=== PATIENT | male | born 1950 | race Caucasian/White ===

== ENCOUNTER → 2017-01-28 | Outpatient (CLI) | payer MEDICARE, OTHER, MEDICAID ==
[~2017-01-28] MED LIST: ADV500INH INH; ALBU83IN INH; ASPI1TAB PO; ATOR1TAB19 PO; COUM2.5T11 PO; METO-346 PO; PERC5TAB6 PO; PLAV75TA38 PO; TOPR50TA PO; TYLE325T5 PO; VITA10002 PO; VITA100066 PO
--- NOTE | 2017-02-01 23:47 | ECWPNPC ---
PATIENT NAME: ASHLEY TINOCO : 1950 GENDER: MALE VISIT DATE: 01/28/2017 DISCHARGE DATE: 01/28/17 1501 VISIT LOCKED DATE TIME: PHYSICIAN: KYLEE ANGELES RESOURCE: KYLEE ANGELES REASON FOR APPOINTMENT 1. LUMBAR SPINE HISTORY OF PRESENT ILLNESS NEW PATIENT CONSULT: WHEN DID YOUR PAIN FIRST START? . BRIEFLY DESCRIBE HOW YOUR PAIN STARTED? . HOW DOES YOUR PAIN CHANGE WITH TIME? . DOES YOUR PAIN AWAKEN YOU FROM SLEEP? . HOW MANY HOURS OF SLEEP DO YOU NORMALLY GET? . ANY DIAGNOSTIC TESTING? . FACILITY WHERE TESTS WERE DONE? ____. PAIN TREATMENT TREATMENT YES CANCER HAVE YOU EVER HAD ANY TYPE OF CANCER?NO NO. PAIN SCREENING: PATIENT HAS A COMPLAINT OF ACUTE OR CHRONIC PAIN YES FALL RISK SCREENING: SCREENING :NO FALLS IN THE PAST YEAR LOVE INVENTORY: QUESTIONNAIRE ASSESSEDYES SCORE VALUE CALCULATED YES SCORE: DENIES SUICIDAL OR HOMICIDAL IDEATION TODAY'S VISIT: NOTES: PT REFERRED BY ASTRID SMITH PA-C ((FOR DR BAUTISTA - [facility]) FOR LOW BACK AND LEFT HIP PAIN. REPORTS HE FELL AND FRACTURED LEFT HIP IN 2014 AND HAD SURGICAL INTERVENTION AT [facility] - HAD TERRIBLE PAIN X 7 MONTHS - WAS SEEN AT [facility] AND HAD REVISON/REPLACEMNT SUGERY OF LEFT HIP. HIPS HAS IMPROVED BUT STILL HAS SIG BACK PAIN. MRI WAS DONE RECENTLY OF LS SPINE. LEFT HIP PAIN IS CONSTANT. WORST PAIN IS LEFT LOW BACK. PAIN SHOOTS 1/2 WAY DOWN LEG AND FEELS LIKE A HOT POKER OVER LEFT THIGH. NO POSITION CHANGE HELPS. WALKING IS VERY PAINFUL IN THE HIP AREA. PAIN CAN PRODUCE NAUSEA. NO PAIN ON RIGHT SIDE. PT WAS FOR BOTH BACK AND HIP. X 13 WEEKS. CURRENTLY DOES NOT HAVE A PCP.HAS BEEN SEEING DELGADO MORROW PA-C AT URGENT CARE. HAD BEEN ON OXYCODONE 10/325 X 3 MONTHS POSTOPERATIVELY AND THEN IT WAS DECREASED .HE WOULD LIKE TO BE BACK ON PAIN MEDS. STATES HE DOES NOT WANT TO HAVE ANY INJECTIONS. RATES HIS PAIN LEVEL TODAY 6.5/10. DESCRIBES THE PAIN BURNING, SHARP AND STABBING AND NOTES PAIN IS CENTERED OVER LEFT LOW BACK, HIP AND GROIN.. CURRENT MEDICATIONS TAKING TIZANIDINE HCL 4 MG TABLET 1 TABLET NEEDED ORALLY EVERY 8 HRS, NOTES: ORTHO TAKING VITAMIN D 2000 UNIT TABLET 1 TABLET ORALLY ONCE A DAY TAKING VITAMIN B 12 1000 MCG CAPSULE 1 CAP(S) ORALLY DAILY TAKING ASPIRIN 81 MG TABLET 1 TABLET ORALLY ONCE A DAY TAKING ADVAIR DISKUS 500-50 MCG/DOSE AEROSOL POWDER BREATH ACTIVATED 2 PUFF INHALATION TWICE A DAY TAKING ALBUTEROL SULFATE (2.5 MG/3ML) 0.083% NEBULIZATION SOLUTION 3 ML INHALATION THREE TIMES A DAY NEEDED FOR SOB TAKING VENTOLIN HFA 108 (90 BASE) MCG/ACT AEROSOL SOLUTION 2 PUFFS NEEDED INHALATION FOUR TIMES DAILY NEEDED TAKING ATORVASTATIN CALCIUM 10 MG TABLET 1 TABLET ORALLY ONCE A DAY TAKING METOPROLOL TARTRATE 50 MG TABLET 1 TABLET WITH FOOD ORALLY TWICE A DAY NOT-TAKING OXYCODONE-ACETAMINOPHEN 5-325 MG TABLET 1 TO 2 TABLET NEEDED ORALLY EVERY 6 HRS PRN== MDD=8, NOTES: ORHTO NOT-TAKING CLOPIDOGREL BISULFATE 75 MG TABLET 1 TABLET ORALLY ONCE A DAY DISCONTINUED REMERON 30 MG TABLET 1 TABLET BEFORE BEDTIME IN THE EVENING ORALLY ONCE A DAY DISCONTINUED COLACE 100 MG CAPSULE 1 CAPSULE NEEDED ORALLY ONCE A DAY DISCONTINUED METOPROLOL SUCCINATE ER 50MG TABLET EXTENDED RELEASE 24 HOUR TAKE ONE TABLET BY MOUTH ONCE DAILY MEDICATION LIST REVIEWED AND RECONCILED WITH THE PATIENT PAST MEDICAL HISTORY CAD S/P [place] 08/2014 S/P STENT X2 AND [place]ALL[place] ANGIOPLASTY AT 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 MALONE GASTRITIS PER EGD 11/2015 ALLERGIES IBUPROFEN: HEMATURIA: ALLERGY LYRICA: HIVES: ALLERGY GABAPENTIN: HIVES: ALLERGY CODEINE PHOSPHATE: NAUSEA/VOMITING: ALLERGY SURGICAL HISTORY LAMINECTOMY/LUMBAR FUSION 2013 CERVICAL DISCECTOMY WITH FUSION 2009 APPENDECTOMY ORIF LEFT HIP 2014 LEFT TOTAL HIP REPLACEMENT 2015 RIGHT WRIST ORIF ANGIOPLASTY/2 STENTS 2013 RIGHT THUMB RECONSTRUCTION LEFT INDEX AND MIDDLE FINGER RECONSTRUCTION FAMILY HISTORY FATHER: MOTHER: 8 SON(S) , 2 DAUGHTER(S) - HEALTHY. SOCIAL HISTORY GENERAL: TOBACCO USE ARE YOU A:CURRENT SMOKER HOW MANY CIGARETTES A DAY DO YOU SMOKE?5 OR LESS PATIENT COUNSELED ON THE DANGERS OF TOBACCO USE AND URGED TO QUIT:01/28/2017 ARE YOU INTERESTED IN QUITTING?NOT READY TO QUIT COUNSELED THE PATIENT ON SMOKING EFFECTS, EDUCATION [id number]/20/2017 ALCOHOL SCREENING POINTS1 INTERPRETATIONNEGATIVE RECREATIONAL DRUG USE DRUG USE?NO CAFFEINE CAFFEINE USE?YES HOW OFTEN AND HOW MUCH? 3 CUPS/DAY OCCUPATION: RETIRED. DIET: REGULAR. EXERCISE: PUSHUPS DAILY. MARITAL STATUS: . OTHERS AT HOME: SPOUSE. RESTORATIONIST: NO SCIENTOLOGIST BELIEFS THAT WOULD IMPACT HEALTH CARE. LEARNING BARRIERS / SPECIAL NEEDS VISION IMPAIRED?YES :CORRECTIVE LENSES LEARNING PREFERENCES?YES :HANDOUTS, DEMONSTRATION/VERBAL INSTRUCTION MEDICATION ABUSE NO PSYCHOLOGICAL HX TREATMENTNO PAIN CLINIC PFS, CLERGY, PUBLIC HEALTH REFERRALS PFS REFERRAL NEEDED?NO CLERGY REFERRAL NEEDED?NO PUBLIC HEALTH REFERRAL NEEDED?NO WAS THE PROVIDER NOTIFIED OF ANY PERTINENT INFO?NO PATIENT: ____. ADVANCED DIRECTIVES HEALTH CARE PROXY?YES NAME OF HCP VEENA TINOCO CONTACT # FOR HCP [phone] IF YES, DO YOU HAVE A COPY WITH YOU? NO POWER OF INTERIOR DESIGN PROFESSIONAL?NO HOSPITALIZATION/MAJOR DIAGNOSTIC PROCEDURE SEE ABOVE SURGERIES PNEUMONIA A CHILD REVIEW OF SYSTEMS CONSTITUTIONAL: ANY CHANGE IN YOUR MEDICAL CONDITION? NO . CHILLS NO . FEVER NO . INFECTION: DO YOU HAVE NEW INFECTIONS? NO . DO YOU HAVE HISTORY OF MRSA? NO . MUSCULOSKELETAL: ANY NEW PATTERNS OF PAIN OR NUMBNESS? YES PT NOTES LEFT HIP/LEFT LOWER BACK DISCOMFORT SINCE FRACTURING LEFT HIP IN 2014. . SYTEMIC LUPUS NO . GASTROENTEROLOGY: GENERAL HAD GI ULCER WHEN 15 YEARS OLD. HAS GI BLEED WITH IBU . ANY NEW CHANGE IN BOWEL CONTROL? NO . BARRETTS ESOPHAGUS NO . CIRRHOSIS NO . HEPATITIS NO . LIVER FAILURE NO . ACID REFLUX NO . UNEXPLAINED WEIGHT LOSS YES, UNINTENTIONALLY LOST 37 LBS THIS YEAR. WORK UP NEGATIVE, HAS RECENTLY PUT 8LBS BACK ON. . GENITOURINARY: ANY NEW CHANGE IN BLADDER CONTROL? NO . IS THERE A CHANCE YOU COULD BE ? NO . HEMATOLOGY/LYMPH: DO YOU TAKE ANY BLOOD THINNERS? (FOR EXAMPLE- COUMADIN, PLAVIX, AGGRENOX, PLATEL, PRADAXA, OR XARELTO) NO . WHEN WAS YOUR LAST DOSE? DATE: TIME: . LOW PLATELET COUNT NO . SICKLE CELL DISEASE NO . VON WILLIEBRANDS NO . FACTOR V LEIDEN NO . THALLASEMIA NO . ANEMIA NO . EASY BRUISING NO . NEUROLOGY: HAVE YOU FALLEN IN THE PAST 6 MONTHS? YES &QUOT;WHEN MY LEG GIVES OUT, PROBABLY 4-5 TIMES IN THE PAST YEAR&QUOT;. . ANY NEW EXTREMITY NUMBNESS OR WEAKNESS? NO . HEAD INJURY NO . DEMENTIA NO . CEREBRAL PALSY NO . MULTIPLE SCLEROSIS NO . DIZZINESS NO . HEADACHE NO . STROKES NO . VERTIGO NO . CARDIOLOGY: DO YOU HAVE A PACEMAKER OR DEFIBRILLATOR? NO . ANGINA NO . HEART ATTACK YES WITH ANGIOPLASTY/2 STENTS. . HEART SURGERY NO . CONGESTIVE HEART FAILURE/FLUID OVERLOAD NO . CHEST PAIN NO . HIGH BLOOD PRESSURE NO . IRREGULAR HEART BEAT YES. PT STATES HX OF A FIB. . RESPIRATORY: HAVE YOU BEEN SICK IN THE PAST WEEK? NO . FEVER NO . FLU LIKE SYMPTOMS? NO . CPAP NO . BYPAP NO . ASTHMA NO . EMPHYSEMA YES . CHRONIC LUNG DISEASES YES - BLACK MOLD . SHORTNESS OF BREATH ON EXERTION YES . DO YOU USE ANY TYPE OF TOBACCO (SMOKE, SMOKELESS, CHEW)? YES 4-5 CIGARETTES/DAY . COUGH YES, NON-PRODUCTIVE . SNORING NO . INTEGUMENTARY: DO YOU HAVE ANY RASHES OR OPEN SORES? NO . ALLERGIC/IMMUNO: ARE YOU ALLERGIC TO SHELLFISH OR IV DYE? NO . ANY NEW ALLERGIES? NO . PSYCHIATRIC: DO YOU HAVE THOUGHTS OF HURTING YOURSELF OR SOMEONE ELSE? NO . ARE YOU ABUSED, NEGLECTED, OR IN AN UNSAFE ENVIRONMENT? NO . ENDOCRINOLOGY: ARE YOU DIABETIC? NO . THYROID DISORDER NO . OTHER: DO YOU NEED ANY PRESCRIPTIONS? NO . IF YES, PLEASE LIST: ____ . ANY NEW PROBLEMS WITH YOUR MEDICATIONS? NO . WHEN DID YOU LAST EAT? ____ . WHEN DID YOU LAST DRINK? ____ . WHAT DID YOU LAST DRINK? ____ . NAME OF PERSON DRIVING YOU HOME? ____ . DO YOU HAVE ANY OTHER QUESTIONS OR CONCERNS NO . REVIEWED BY: PROVIDER: KYLEE HUA . VITAL SIGNS WT 143 LBS, HT 6', BMI 19.39 INDEX, BP 131/80 MM HG, HR 92 /MIN, RR 18 /MIN, TEMP 98.6 F, OXYGEN SAT % 97%, REVIEWED BY: MLF. EXAMINATION GENERAL EXAMINATION: PSYCHTHIN, PALE, ALERT , ORIENTED X 3 , ANXIOUS. HEENT:NORMOCEPHALIC, NO LYMPHDENOPATHY, NO THYROMEGLY. LUNGS:CLEAR TO AUSCULTATION BILATERALLY, NO WHEEZES, RALES OR RHONCHI. HEART:NO CAROTID BRUITS. , HEART RATE IRREGULAR, , 1/6 SYSTOLOC MURMUR LEFT OF STERAL BORDER. . MUSCULOSKELETAL:MUSCLE STRENGTH TESTING 5/5 BILATERAL UPPER AND LOWER EXTREMITIES. HEAD IN HEAD FORWARD POSITION NEG SLR BILAT. POS PATRICKS WITH PAIN IN LEFT HIP. SL DISCOMFORT WITH LEFT HIP COMPRESSTION. POINT TENDERNESS OVER LEFT FACETS AND SIJ, EXQ TENDER OVER LEFT TROCANTER. SLOW TO RISE TO STANDING POSITION. POOR BALANCE. GAIT WIDE BASED, ROCKING.. NEUROLOGIC EXAM:DECREASED SENSATION OVEER MEDIAL/LAT LEFT HIP AND LATER LEFT LOWER EXTREMITY. DTR'S 2+ UPPER AND LOWER EXTREMITIES. . DIAGNOSTIC TESTS REVIEWEDMRI OF LUMBAR SPINE WITH CONTRAST COMPLETED 01/04/17 REVIEWED. ASSESSMENTS POST LAMINECTOMY SYNDROME - M96.1 (PRIMARY) LUMBAR RADICULAR PAIN - M54.16 PAIN OF LEFT HIP JOINT - M25.552 TREATMENT POST LAMINECTOMY SYNDROME START DULOXETINE HCL CAPSULE DELAYED RELEASE PARTICLES, 30 MG, 1 CAPSULE, ORALLY, DAILY, 30 DAY(S), 30 CAPSULE, REFILLS 1 START TRAMADOL HCL TABLET, 50 MG, 2 TABLET, ORALLY, BEFORE BEDTIME, 30 DAY(S), 60, REFILLS 1 NOTES: CONSIDER INJECTION TREATMENT. SEE SURGEON FOR RE-EVAL , # 226 TOBACCO USE SCREENING/INTERVENTION: PATIENT CURRENTLY USED TOBACCO. WAS OFFERED SMOKING CESSATION FOR GUIDANCE IN QUITTING THROUGH THE [facility] QUITS PROGRAM AND [facility]. DISCUSSED WEIGHT LOSS - PT WILL BE CONTINUING TO FOLLOW UP WITH HIS PRIMARY PROVIDER. PREVENTIVE MEDICINE PAIN CLINIC TEACHING: MEDICATIONS PRINTED HANDOUTS FOR TRAMADOL AND DULOXETINE GIVEN/REVIEWED WITH PT.. PROCEDURE CODES FA211 ESTABILISHED PATIENT [facility] FACILITY CHARGE G7653 BP SCR PRFRM RCMDD DEFIND SCR INTVL G8418 BMI < 22 CALCUATE W/FOLLOWUP G8730 PAIN ASSESS POS TOOL F/U PLAN DOC 3016F PT SCRND UNHLTHY OH USE 1124F ACP DISCUSS-NO DSCNMKR DOCD J6427 DOC MEDS VERIFIED W/PT [place] RE 3288F FALL RISK ASSESSMENT DOCD 4004F PT TOBACCO SCREEN RCVD TLK DISPOSITION & COMMUNICATION FOLLOW UP 1 MONTH ELECTRONICALLY SIGNED BY JAVIER SOTO ON 02/01/2017 AT 06:12 PM EDT DISCLAIMER : THIS IS A VISIT SUMMARY EXTRACTED FROM THE [employer] CHART. IT IS NOT A COPY OF THE [employer] PROGRESS NOTE. SUNIL
== END ==
LOC: M PAIN 13:20
PROVIDERS: ATTEND Nurse Practitioner Family
DX: M96.1 Postlaminectomy syndrome, not elsewhere classified (principal); M54.16 Radiculopathy, lumbar region; M25.552 Pain in left hip; G89.29 Other chronic pain; Z79.82 Long term (current) use of aspirin; Z79.899 Other long term (current) drug therapy; J44.9 Chronic obstructive pulmonary disease, unspecified; I25.10 Atherosclerotic heart disease of native coronary artery without angina pectoris; Z72.0 Tobacco use; E53.8 Deficiency of other specified B group vitamins; E55.9 Vitamin D deficiency, unspecified

== ENCOUNTER → 2017-03-29 | Outpatient (CLI) | payer MEDICARE, OTHER, MEDICAID ==
--- NOTE | 2017-04-16 00:33 | ECWPNPC ---
PATIENT NAME: ASHLEY TINOCO : 1950 GENDER: MALE VISIT DATE: 03/29/2017 DISCHARGE DATE: 03/29/17 1235 VISIT LOCKED DATE TIME: PHYSICIAN: KYLEE ANGELES RESOURCE: KYLEE ANGELES REASON FOR APPOINTMENT 1. BACK HISTORY OF PRESENT ILLNESS HISTORY OF PRESENT ILLNESS: PAIN THE PATIENT DESCRIBES THE PAIN... FALL RISK SCREENING: SCREENING :NO FALLS IN THE PAST YEAR TODAY'S VISIT: NOTES: RATES PAIN LEVEL TODAY 04/20.NOTES PAIN IS CENTERED IN LOW BACK AND LEFT BUTTUCK.HAS BEEN CLIMBING LADDERS AND WORKING UNDER TRUCK. HAS SURGERY SCHEDULED FOR 04/18/[address] BAUTISTA. STATES PAIN MEDS OF TRAMADOL WERE NOT VERY EFFECTIVE. . CURRENT MEDICATIONS TAKING DULOXETINE HCL 30 MG CAPSULE DELAYED RELEASE PARTICLES 1 CAPSULE ORALLY DAILY TAKING TIZANIDINE HCL 4 MG TABLET 1 TABLET NEEDED ORALLY EVERY 8 HRS, NOTES: ORTHO TAKING VITAMIN D 2000 UNIT TABLET 1 TABLET ORALLY ONCE A DAY TAKING VITAMIN B 12 1000 MCG CAPSULE 1 CAP(S) ORALLY DAILY TAKING ADVAIR DISKUS 500-50 MCG/DOSE AEROSOL POWDER BREATH ACTIVATED 2 PUFF INHALATION TWICE A DAY TAKING ALBUTEROL SULFATE (2.5 MG/3ML) 0.083% NEBULIZATION SOLUTION 3 ML INHALATION THREE TIMES A DAY NEEDED FOR SOB TAKING VENTOLIN HFA 108 (90 BASE) MCG/ACT AEROSOL SOLUTION 2 PUFFS NEEDED INHALATION FOUR TIMES DAILY NEEDED TAKING ATORVASTATIN CALCIUM 10 MG TABLET 1 TABLET ORALLY ONCE A DAY TAKING METOPROLOL TARTRATE 50 MG TABLET 1 TABLET WITH FOOD ORALLY TWICE A DAY TAKING XARELTO 10 MG TABLET 1 TABLET ORALLY ONCE A DAY NOT-TAKING TRAMADOL HCL 50 MG TABLET 2 TABLET ORALLY BEFORE BEDTIME NOT-TAKING ASPIRIN 81 MG TABLET 1 TABLET ORALLY ONCE A DAY NOT-TAKING OXYCODONE-ACETAMINOPHEN 5-325 MG TABLET 1 TO 2 TABLET NEEDED ORALLY EVERY 6 HRS PRN== MDD=8, NOTES: ORHTO NOT-TAKING CLOPIDOGREL BISULFATE 75 MG TABLET 1 TABLET ORALLY ONCE A DAY MEDICATION LIST REVIEWED AND RECONCILED WITH THE PATIENT PAST MEDICAL HISTORY CAD S/P [place] 08/2014 S/P STENT X2 AND [facility]ALL[place] ANGIOPLASTY AT [facility] - NOT FOLLOWED BY CUT ROLL MACHINE OFFBEARER CURRENTLY, SAW ESTEPHANIE/DIANA 09/25 PREOP HIP FX DDD C-SPINE AND LUMBAR SPINE - CHRONIC PAIN COPD 08/13/15 SPIROMETRY - FEV1 = 2.22 60%, FEV1/FVC = 75% PREDICTED - MODERATE OBSTRUCTION; CT CHEST 08/25 TOBACCO ABUSE 08/2015 CT ABD/PELVIS - ALINA HEPATIS AND RETROPERITONEAL ADENOPATHY - PET SCAN NEGATIVE 12/2015 - FOLLOWED BY DR. MALONE GASTRITIS PER EGD 11/2015 ALLERGIES IBUPROFEN: HEMATURIA: ALLERGY LYRICA: HIVES: ALLERGY GABAPENTIN: HIVES: ALLERGY CODEINE PHOSPHATE: NAUSEA/VOMITING: ALLERGY REVIEW OF SYSTEMS CONSTITUTIONAL: ANY CHANGE IN YOUR MEDICAL CONDITION? YES PT REPORTS HE IS SCHEDULED TO HAVE BACK SURGERY AT [facility] 04/18/17&NBSP;. CHILLS &NBSP;&NBSP; NO&NBSP;. FEVER &NBSP;&NBSP; NO&NBSP;. INFECTION: DO YOU HAVE NEW INFECTIONS? NO . DO YOU HAVE HISTORY OF MRSA? NO . MUSCULOSKELETAL: ANY NEW PATTERNS OF PAIN OR NUMBNESS? YES PT REPORTS INCREASED PAIN IN BACK/HIP, NOW STATES IT IS GETTING HARD TO WALK . GASTROENTEROLOGY: ANY NEW CHANGE IN BOWEL CONTROL? NO . GENITOURINARY: ANY NEW CHANGE IN BLADDER CONTROL? NO . IS THERE A CHANCE YOU COULD BE ? NO . HEMATOLOGY/LYMPH: DO YOU TAKE ANY BLOOD THINNERS? (FOR EXAMPLE- COUMADIN, PLAVIX, AGGRENOX, PLATEL, PRADAXA, OR XARELTO) YES THINKS IT IS XARELTO, WILL BRING A LIST TO NEXT APPOINTMENT . WHEN WAS YOUR LAST DOSE? DATE: TIME: . NEUROLOGY: HAVE YOU FALLEN IN THE PAST 6 MONTHS? NO . ANY NEW EXTREMITY NUMBNESS OR WEAKNESS? NO . CARDIOLOGY: DO YOU HAVE A PACEMAKER OR DEFIBRILLATOR? NO . RESPIRATORY: HAVE YOU BEEN SICK IN THE PAST WEEK? NO . FEVER NO . FLU LIKE SYMPTOMS? NO . COUGH NO . INTEGUMENTARY: DO YOU HAVE ANY RASHES OR OPEN SORES? NO . ALLERGIC/IMMUNO: ARE YOU ALLERGIC TO SHELLFISH OR IV DYE? NO . ANY NEW ALLERGIES? NO . PSYCHIATRIC: DO YOU HAVE THOUGHTS OF HURTING YOURSELF OR SOMEONE ELSE? NO . ARE YOU ABUSED, NEGLECTED, OR IN AN UNSAFE ENVIRONMENT? NO . ENDOCRINOLOGY: ARE YOU DIABETIC? NO . OTHER: DO YOU NEED ANY PRESCRIPTIONS? YES DULOXETINE . IF YES, PLEASE LIST: ____ . ANY NEW PROBLEMS WITH YOUR MEDICATIONS? NO . WHEN DID YOU LAST EAT? ____ . WHEN DID YOU LAST DRINK? ____ . WHAT DID YOU LAST DRINK? ____ . NAME OF PERSON DRIVING YOU HOME? ____ . DO YOU HAVE ANY OTHER QUESTIONS OR CONCERNS YES PT REPORTS THAT TRAMADOL IS INEFFECTIVE, WOULD LIKE TO TRY SOMETHING ELSE . REVIEWED BY: PROVIDER: KYLEE HUA . VITAL SIGNS WT 147.4 LBS, HT 6', BMI 19.99 INDEX, BP 151/81 MM HG, HR 88 /MIN, RR 18 /MIN, TEMP 98.4 F, OXYGEN SAT % 98%, SAFE IN ENV? (Y/N) YES, NA INITIALS TL 1140, REVIEWED BY: JAVED. EXAMINATION GENERAL EXAMINATION: PSYCHTHIN, PALE, ALERT , ORIENTED X 3 , ANXIOUS. LUNGS:CLEAR TO AUSCULTATION BILATERALLY, NO WHEEZES, RALES OR RHONCHI. HEART:NO CAROTID BRUITS. , HEART RATE IRREGULAR, , 1/6 SYSTOLOC MURMUR LEFT OF STERAL BORDER. . MUSCULOSKELETAL:MUSCLE STRENGTH TESTING 5/5 BILATERAL UPPER AND LOWER EXTREMITIES. HEAD IN HEAD FORWARD POSITION . SL DISCOMFORT WITH LEFT HIP COMPRESSTION. POINT TENDERNESS OVER LEFT FACETS AND SIJ, EXQ TENDER OVER LEFT TROCANTER. SLOW TO RISE TO STANDING POSITION. POOR BALANCE. GAIT WIDE BASED, ROCKING.. NEUROLOGIC EXAM:DECREASED SENSATION OVEER MEDIAL/LAT LEFT HIP AND LATER LEFT LOWER EXTREMITY. DTR'S 2+ UPPER AND LOWER EXTREMITIES. . ASSESSMENTS POST LAMINECTOMY SYNDROME - M96.1 (PRIMARY) LUMBAR RADICULAR PAIN - M54.16 PAIN OF LEFT HIP JOINT - M25.552 TREATMENT POST LAMINECTOMY SYNDROME START PERCOCET TABLET, 5-325 MG, 1 TABLET NEEDED, ORALLY, EVERY 8-12 HRS MDD=2, 18 DAYS, 34, REFILLS 0 START BACLOFEN TABLET, 10 MG, 1 TABLET WITH FOOD OR MILK, ORALLY, BEFORE BEDTIME, 30 DAY(S), 30, REFILLS 0 NOTES: DO NOT TAKE MEDICATION AND DRIVE. KEEP MEDICATION SECURE. PROCEDURE CODES FA211 ESTABILISHED PATIENT [facility] CHARGE DISPOSITION & COMMUNICATION FOLLOW UP CALL IF APPOINTMENT NEEDED ELECTRONICALLY SIGNED BY JAVIER SOTO ON 04/15/2017 AT 10:55 AM EDT DISCLAIMER : THIS IS A VISIT SUMMARY EXTRACTED FROM THE [facility] CH[facility]. IT IS NOT A COPY OF THE [facility] PROGRESS NOTE. MTDD
== END ==
LOC: M PAIN 11:00
PROVIDERS: ATTEND Nurse Practitioner Family
DX: M96.1 Postlaminectomy syndrome, not elsewhere classified (principal); M54.16 Radiculopathy, lumbar region; M25.552 Pain in left hip; Z79.899 Other long term (current) drug therapy; Z88.6 Allergy status to analgesic agent; Z88.5 Allergy status to narcotic agent; Z88.8 Allergy status to other drugs, medicaments and biological substances

== ENCOUNTER → 2017-05-16 | Outpatient (CLI) | payer MEDICARE, MEDICAID ==
[~2017-05-16] MED LIST changes: -COUM2.5T11 PO; +COUM2.5T17 PO; +PERC5TAB12 PO; -PERC5TAB6 PO; +PLAV1TAB2 PO; -PLAV75TA38 PO
--- NOTE | 2017-05-16 13:45 | REP ---
Clinical: Lung screening. History smoking. Comparison: 10/03/2016 Technique: Axial low-dose noncontrast images from the thoracic inlet to the upper abdomen using lung screening technique. Findings: The lung schneider are well-aerated. Mild chronic emphysematous changes suggested. No consolidation, significant nodule or mass lesion is appreciated. No pleural effusion/reaction or pneumothorax. Tracheobronchial tree is patent. Mediastinum demonstrates mild atherosclerotic changes of the coronary arteries without cardiomegaly. Impression: Lung-RADS category I. No nodule or suspicious abnormality. Signed by Kerwin Barrios MD 05/16/2017 01:36 P
== END ==
LOC: M RAD 13:07
PROVIDERS: ATTEND Physician Assistant
DX: Z12.2 Encounter for screening for malignant neoplasm of respiratory organs (principal); J44.9 Chronic obstructive pulmonary disease, unspecified; F17.210 Nicotine dependence, cigarettes, uncomplicated

== ENCOUNTER → 2017-07-23 | Outpatient (REF) | payer MEDICARE, MEDICAID ==
[2017-07-23 20:17] LABS: FOLATE 11.3 NG/ML; MEAN CORPUSCULAR HEMOGLOBIN 32.4 pg (27.0-33.0); MEAN CORPUSCULAR HGB CONC 32.1 g/dl (32.0-36.5); RED CELL DISTRIBUTION WIDTH 14.3 % (11.5-14.5); WHITE BLOOD COUNT 5.9 K/mm3 (4.0-10.0)
[2017-07-23 20:21] LABS: ALBUMIN 3.6 GM/DL (3.2-5.2); ALKALINE PHOSPHATASE 103 U/L (45-117); ALT/SGPT 41 U/L (12-78); ANION GAP 6 MEQ/L (8-16); AST/SGOT 36 U/L (15-37); BILIRUBIN,TOTAL 0.4 MG/DL (0.2-1.0); BLOOD UREA NITROGEN 10 MG/DL (7-18); CALCIUM LEVEL 9.7 MG/DL (8.8-10.2); CARBON DIOXIDE LEVEL 30 MEQ/L (21-32); CHLORIDE LEVEL 106 MEQ/L (98-107); CHOLESTEROL LEVEL 180 MG/DL (<200); CREATININE FOR GFR 0.94 MG/DL (0.70-1.30); FREE T4 1.06 NG/DL (0.76-1.46); GLOMERULAR FILTRATION RATE > 60.0 (>49); GLUCOSE, FASTING 83 MG/DL (80-110); POTASSIUM SERUM 4.8 MEQ/L (3.5-5.1); SODIUM LEVEL 142 MEQ/L (136-145); TOTAL PROTEIN 7.2 GM/DL (6.4-8.2); TRIGLYCERIDES LEVEL 56 MG/DL (<150)
[2017-07-23 20:59] LABS: VITAMIN B12 LEVEL 638 PG/ML
== END ==
LOC: M SFHCADAM 13:35
PROVIDERS: ATTEND Physician Assistant
DX: J44.9 Chronic obstructive pulmonary disease, unspecified (principal); I25.10 Atherosclerotic heart disease of native coronary artery without angina pectoris; Z87.81 Personal history of (healed) traumatic fracture; E55.9 Vitamin D deficiency, unspecified; E53.8 Deficiency of other specified B group vitamins; Z79.899 Other long term (current) drug therapy

== ENCOUNTER → 2017-08-05 | Outpatient (CLI) | payer MEDICARE, MEDICAID ==
--- NOTE | 2017-08-31 00:52 | ECWPNPC ---
PATIENT NAME: ASHLEY TINOCO : 1950 GENDER: MALE VISIT DATE: 08/05/2017 DISCHARGE DATE: 08/05/17 1437 VISIT LOCKED DATE TIME: PHYSICIAN: KYLEE ANGELES RESOURCE: KYLEE ANGELES REASON FOR APPOINTMENT 1. BACK HISTORY OF PRESENT ILLNESS TODAY'S VISIT: NOTES: RATES PAIN 5/10. PAIN IS CONCENTRATED IN LEFT HIP AND LOW BACK AND AT NECK. HAD EXTENSIVE BACK SURGERY WITH DR BAUTISTA IN [place]. HAS NOT HAD ANY PAIN MEDS. HAD 2 GA'S [address] SINCE SURGERY.. CURRENT MEDICATIONS TAKING ADVAIR DISKUS 500-50 MCG/DOSE AEROSOL POWDER BREATH ACTIVATED 1 PUFF INHALATION TWICE A DAY TAKING VENTOLIN HFA 108 (90 BASE) MCG/ACT AEROSOL SOLUTION 2 PUFFS NEEDED INHALATION FOUR TIMES DAILY NEEDED TAKING RANEXA 1000 MG TABLET EXTENDED RELEASE 12 HOUR 1 TABLET ORALLY TWICE A DAY TAKING TIZANIDINE HCL 4 MG TABLET 1 TABLET NEEDED ORALLY EVERY 8 HRS, NOTES: ORTHO TAKING ALBUTEROL SULFATE (2.5 MG/3ML) 0.083% NEBULIZATION SOLUTION 3 ML INHALATION THREE TIMES A DAY NEEDED FOR SOB TAKING ATORVASTATIN CALCIUM 10 MG TABLET 1 TABLET ORALLY ONCE A DAY TAKING METOPROLOL TARTRATE 50 MG TABLET 1 TABLET WITH FOOD ORALLY TWICE A DAY TAKING PLAVIX 75 MG TABLET 1 TABLET ORALLY TWICE DAILY TAKING VITAMIN D 2000 UNIT TABLET 1 TABLET ORALLY ONCE A DAY TAKING VITAMIN B 12 1000 MCG CAPSULE 1 CAP(S) ORALLY DAILY NOT-TAKING RANEXA 1 TAB ORAL NOT-TAKING ASPIRIN 81 MG TABLET 1 TABLET ORALLY ONCE A DAY MEDICATION LIST REVIEWED AND RECONCILED WITH THE PATIENT PAST MEDICAL HISTORY CAD S/P [place] 08/2014 S/P STENT X2 AND [place]ALL[place] ANGIOPLASTY AT [facility] - S/P CATH 06/2017 WITH TIMOTHY X 4 DDD C-SPINE AND LUMBAR SPINE - CHRONIC PAIN COPD 08/13/15 SPIROMETRY - FEV1 = 2.22 60%, FEV1/FVC = 75% PREDICTED - MODERATE OBSTRUCTION; CT CHEST 08/25 TOBACCO ABUSE 08/2015 CT ABD/PELVIS - ALINA HEPATIS AND RETROPERITONEAL ADENOPATHY - PET SCAN NEGATIVE 12/2015 - FOLLOWED BY DR. MALONE GASTRITIS PER EGD 11/2015 ALLERGIES IBUPROFEN: HEMATURIA: ALLERGY LYRICA: HIVES: ALLERGY GABAPENTIN: HIVES: ALLERGY CODEINE PHOSPHATE: NAUSEA/VOMITING: ALLERGY REVIEW OF SYSTEMS FOLLOW-UP ROS: CARDIOLOGY: NEGATIVE FOR, CHEST PAIN, NO LEG SWELLING . GI/ NEGATIVE FOR, ABDOMINAL PAIN, NAUSEA, VOMITING, LOSS OF BOWEL OR BLADDER CONTROL . PULMONOLOGY: NEGATIVE FOR, COUGH, SHORTNESS OF BREATH . VITAL SIGNS WT 142.8 LBS, HT 6', BMI 19.37 INDEX, BP 146/74 MM HG, HR 85 /MIN, RR 18 /MIN, TEMP 98.1 F, OXYGEN SAT % 95%, NA INITIALS SC 13:37. EXAMINATION GENERAL EXAMINATION: PSYCHTHIN, PALE, ALERT , ORIENTED X 3 , ANXIOUS. LUNGS:CLEAR TO AUSCULTATION BILATERALLY, NO WHEEZES, RALES OR RHONCHI. HEART:NO CAROTID BRUITS. , HEART RATE IRREGULAR, , 1/6 SYSTOLOC MURMUR LEFT OF STERNAL BORDER. . MUSCULOSKELETAL:MUSCLE STRENGTH TESTING 5/5 BILATERAL UPPER AND LOWER EXTREMITIES. HEAD IN HEAD FORWARD POSITION . SL DISCOMFORT WITH LEFT HIP COMPRESSTION. POINT TENDERNESS OVER LEFT FACETS AND SIJ, TENDER OVER LEFT TROCANTER. SLOW TO RISE TO STANDING POSITION. POOR BALANCE. GAIT WIDE BASED, ROCKING.. NEUROLOGIC EXAM:DECREASED SENSATION OVEER MEDIAL/LAT LEFT HIP AND LATER LEFT LOWER EXTREMITY. DTR'S 2+ UPPER AND LOWER EXTREMITIES. . ASSESSMENTS POST LAMINECTOMY SYNDROME - M96.1 (PRIMARY) LUMBAR RADICULAR PAIN - M54.16 PAIN OF LEFT HIP JOINT - M25.552 TREATMENT POST LAMINECTOMY SYNDROME START NORCO TABLET, 5-325 MG, 1 TABLET NEEDED, ORALLY, EVERY 6 HRS PRN PAIN MDD=3, 30 DAY(S), 90, REFILLS 0 NOTES: NARCOTIC AGREEMENTTODAY. CLINICAL NOTES: ISTOP REGISTRY REVIEWED AND DEMNOSTRATES COMPLLIANCE. (REF # [id number]). PROCEDURE CODES FA211 ESTABILISHED PATIENT [facility] CHARGE DISPOSITION & COMMUNICATION FOLLOW UP 26-28 DAYS (REASON: BACK PAIN) ELECTRONICALLY SIGNED BY JAVIER SOTO ON 08/30/2017 AT 09:52 AM EDT DISCLAIMER : THIS IS A VISIT SUMMARY EXTRACTED FROM THE [employer] CHART. IT IS NOT A COPY OF THE [employer] PROGRESS NOTE. MTDD
== END | disposition home or self-care (01) ==
LOC: M PAIN 13:30
PROVIDERS: ATTEND Nurse Practitioner Family
DX: G89.29 Other chronic pain (principal); M96.1 Postlaminectomy syndrome, not elsewhere classified; M54.16 Radiculopathy, lumbar region; M25.552 Pain in left hip; I25.10 Atherosclerotic heart disease of native coronary artery without angina pectoris; M19.90 Unspecified osteoarthritis, unspecified site; J44.9 Chronic obstructive pulmonary disease, unspecified; Z79.899 Other long term (current) drug therapy; Z79.02 Long term (current) use of antithrombotics/antiplatelets; Z88.8 Allergy status to other drugs, medicaments and biological substances

== ENCOUNTER → 2017-09-04 | Outpatient (CLI) | payer MEDICARE, MEDICAID ==
--- NOTE | 2017-09-30 00:46 | ECWPNPC ---
PATIENT NAME: ASHLEY TINOCO : 1950 GENDER: MALE VISIT DATE: 09/04/2017 DISCHARGE DATE: 09/04/17 1343 VISIT LOCKED DATE TIME: PHYSICIAN: KYLEE ANGELES RESOURCE: KYLEE ANGELES REASON FOR APPOINTMENT 1. BACK PAIN HISTORY OF PRESENT ILLNESS HISTORY OF PRESENT ILLNESS: PAIN THE PATIENT DESCRIBES THE PAIN... FALL RISK SCREENING: SCREENING :NO FALLS IN THE PAST YEAR TODAY'S VISIT: NOTES: RATES PAIN TODAY 5/10. IS NOTING THAT THE COLD WEATHER IS A PROBLEM FOR HIS PAIN CONTROL. PAIN IS CENTERED OVER LOW BACK AND LEFT HIP. NOTES PAIN MEDS ARE NOT WORKING WELL. NOTED NO IMPROVEMENT ON HIGHER DOSES OF MEDS. STATES SLEEP IS DISRUPTED. HOPES TO BE MOVING TO [place] NEXT MONTH. . CURRENT MEDICATIONS TAKING ADVAIR DISKUS 500-50 MCG/DOSE AEROSOL POWDER BREATH ACTIVATED 1 PUFF INHALATION TWICE A DAY TAKING VENTOLIN HFA 108 (90 BASE) MCG/ACT AEROSOL SOLUTION 2 PUFFS NEEDED INHALATION FOUR TIMES DAILY NEEDED TAKING RANEXA 1000 MG TABLET EXTENDED RELEASE 12 HOUR 1 TABLET ORALLY TWICE A DAY TAKING TIZANIDINE HCL 4 MG TABLET 1 TABLET NEEDED ORALLY EVERY 8 HRS, NOTES: ORTHO TAKING ALBUTEROL SULFATE (2.5 MG/3ML) 0.083% NEBULIZATION SOLUTION 3 ML INHALATION THREE TIMES A DAY NEEDED FOR SOB TAKING ATORVASTATIN CALCIUM 10 MG TABLET 1 TABLET ORALLY ONCE A DAY TAKING METOPROLOL TARTRATE 50 MG TABLET 1 TABLET WITH FOOD ORALLY TWICE A DAY TAKING PLAVIX 75 MG TABLET 1 TABLET ORALLY TWICE DAILY TAKING VITAMIN D 2000 UNIT TABLET 1 TABLET ORALLY ONCE A DAY TAKING VITAMIN B 12 1000 MCG CAPSULE 1 CAP(S) ORALLY DAILY TAKING NORCO 5-325 MG TABLET 1 TABLET NEEDED ORALLY EVERY 6 HRS PRN PAIN MDD=3 TAKING RANEXA 1 TAB ORAL UNKNOWN ASPIRIN 81 MG TABLET 1 TABLET ORALLY ONCE A DAY MEDICATION LIST REVIEWED AND RECONCILED WITH THE PATIENT PAST MEDICAL HISTORY CAD S/P MO 08/2014 S/P STENT X2 AND [place] ANGIOPLASTY AT [facility] - S/P CATH 06/2017 WITH TIMOTHY X 4 DDD C-SPINE AND LUMBAR SPINE - CHRONIC PAIN COPD 08/13/15 SPIROMETRY - FEV1 = 2.22 60%, FEV1/FVC = 75% PREDICTED - MODERATE OBSTRUCTION; CT CHEST 08/25 TOBACCO ABUSE 08/2015 CT ABD/PELVIS - ALINA HEPATIS AND RETROPERITONEAL ADENOPATHY - PET SCAN NEGATIVE 12/2015 - FOLLOWED BY DR. MALONE GASTRITIS PER EGD 11/2015 ALLERGIES IBUPROFEN: HEMATURIA: ALLERGY LYRICA: HIVES: ALLERGY GABAPENTIN: HIVES: ALLERGY CODEINE PHOSPHATE: NAUSEA/VOMITING: ALLERGY SURGICAL HISTORY LAMINECTOMY/LUMBAR FUSION 2013 CERVICAL DISCECTOMY WITH FUSION 2009 APPENDECTOMY ORIF LEFT HIP 2015 LEFT TOTAL HIP REPLACEMENT 2015 RIGHT WRIST ORIF ANGIOPLASTY/2 STENTS 2013 RIGHT THUMB RECONSTRUCTION LEFT INDEX AND MIDDLE FINGER RECONSTRUCTION EGD/COLONOSCOPY - GASTRITIS, HEMORRHOIDS 12/01/15 CARDIAC CATH WITH TIMOTHY X 4 05/2017 SOCIAL HISTORY GENERAL: TOBACCO USE ARE YOU A:CURRENT SMOKER HOW MANY CIGARETTES A DAY DO YOU SMOKE?5 OR LESS PATIENT COUNSELED ON THE DANGERS OF TOBACCO USE AND URGED TO QUIT:07/23/2017 ARE YOU INTERESTED IN QUITTING?NOT READY TO QUIT COUNSELED THE PATIENT ON SMOKING EFFECTS, EDUCATION [id number]/12/2017 LUNG CANCER SCREENING SMOKING STATUS:CURRENT SMOKER IS THE PATIENT BETWEEN THE AGE OF 54 AND 76?YES HAS THE PATIENT EVER BEEN DIAGNOSED WITH LUNG CANCER?NO PACK YEARS = NUMBER OF PACKS PER DAY SMOKED X NUMBER OF YEARS SMOKED:50 CREATE REFERRAL:CREATED REFERRAL TO ONCOLOGY NURSE [employer] FOR LDCT SCAN ALCOHOL SCREENING DID YOU HAVE A DRINK CONTAINING ALCOHOL IN THE PAST YEAR?YES HOW OFTEN DID YOU HAVE A DRINK CONTAINING ALCOHOL IN THE PAST YEAR?MONTHLY OR LESS (1 POINT) HOW MANY DRINKS DID YOU HAVE ON A TYPICAL DAY WHEN YOU WERE DRINKING IN THE PAST YEAR?1 OR 2 (0 POINTS) POINTS1 INTERPRETATIONNEGATIVE RECREATIONAL DRUG USE DRUG USE?NO CAFFEINE CAFFEINE USE?YES HOW OFTEN AND HOW MUCH? 3 CUPS/DAY OCCUPATION: RETIRED. DIET: REGULAR. EXERCISE: PUSHUPS DAILY. MARITAL STATUS: . OTHERS AT HOME: SPOUSE. YARSANISM NO LATTER DAY BELIEFS THAT WOULD IMPACT HEALTH CARE. LEARNING BARRIERS / SPECIAL NEEDS VISION IMPAIRED?YES :CORRECTIVE LENSES LEARNING PREFERENCES?YES :HANDOUTS, DEMONSTRATION/VERBAL INSTRUCTION MEDICATION ABUSE NO PSYCHOLOGICAL HX TREATMENT NO . PAIN CLINIC PFS, CLERGY, PUBLIC HEALTH REFERRALS PFS REFERRAL NEEDED?NO CLERGY REFERRAL NEEDED?NO PUBLIC HEALTH REFERRAL NEEDED?NO WAS THE PROVIDER NOTIFIED OF ANY PERTINENT INFO?NO HAS THE PATIENT BEEN EDUCATED REGARDING HIS/HER PLAN OF CARE?YES HAS THE PATIENT BEEN EDUCATED REGARDING PAIN, THE RISK FOR PAIN, THE IMPORTANCE OF EFFECTIVE PAIN MANAGEMENT, AND THE PAIN ASSESSMENT PROCESS?YES PATIENT: ____. ADVANCE DIRECTIVES HEALTH CARE PROXY?YES NAME OF HCP VEENA TINOCO CONTACT # FOR HCP [phone] DO YOU HAVE A COPY WITH YOU? 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 CONSTITUTIONAL: ANY CHANGE IN YOUR MEDICAL CONDITION? NO . CHILLS NO . FEVER NO . INFECTION: DO YOU HAVE NEW INFECTIONS? NO . DO YOU HAVE HISTORY OF MRSA? NO . MUSCULOSKELETAL: ANY NEW PATTERNS OF PAIN OR NUMBNESS? NO . GASTROENTEROLOGY: ANY NEW CHANGE IN BOWEL CONTROL? NO . GENITOURINARY: ANY NEW CHANGE IN BLADDER CONTROL? NO . IS THERE A CHANCE YOU COULD BE ? NO . HEMATOLOGY/LYMPH: DO YOU TAKE ANY BLOOD THINNERS? (FOR EXAMPLE- COUMADIN, PLAVIX, AGGRENOX, PLATEL, PRADAXA, OR XARELTO) YES, PLAVIX . WHEN WAS YOUR LAST DOSE? DATE: TIME: . NEUROLOGY: HAVE YOU FALLEN IN THE PAST 6 MONTHS? NO . ANY NEW EXTREMITY NUMBNESS OR WEAKNESS? NO . CARDIOLOGY: DO YOU HAVE A PACEMAKER OR DEFIBRILLATOR? NO . RESPIRATORY: HAVE YOU BEEN SICK IN THE PAST WEEK? NO . FEVER NO . FLU LIKE SYMPTOMS? NO . COUGH NO . INTEGUMENTARY: DO YOU HAVE ANY RASHES OR OPEN SORES? YES - OPEN LESION ON BASE OF NECK . ALLERGIC/IMMUNO: ARE YOU ALLERGIC TO SHELLFISH OR IV DYE? NO . ANY NEW ALLERGIES? NO . PSYCHIATRIC: DO YOU HAVE THOUGHTS OF HURTING YOURSELF OR SOMEONE ELSE? NO . ARE YOU ABUSED, NEGLECTED, OR IN AN UNSAFE ENVIRONMENT? NO . ENDOCRINOLOGY: ARE YOU DIABETIC? NO . OTHER: DO YOU NEED ANY PRESCRIPTIONS? NO . IF YES, PLEASE LIST: ____ . ANY NEW PROBLEMS WITH YOUR MEDICATIONS? YES, PT C/O HARD TIME SLEEPING AT NIGHT FROM PAIN. PT FEELS THE [employer] WAS WORKING WELL AT FIRST AND NOW IT JUST DOESN'T SEEM TO HELP . WHEN DID YOU LAST EAT? ____ . WHEN DID YOU LAST DRINK? ____ . WHAT DID YOU LAST DRINK? ____ . NAME OF PERSON DRIVING YOU HOME? ____ . DO YOU HAVE ANY OTHER QUESTIONS OR CONCERNS NO, PT DENIES GETTING FLU VACCINE, STATES HE NEVER GETS IT . VITAL SIGNS WT 144.4 LBS, HT 6', BMI 19.58 INDEX, BP 141/80 MM HG, HR 95 /MIN, RR 18 /MIN, TEMP 98.1 F, OXYGEN SAT % 98%, NA INITIALS SC 13:13, REVIEWED BY: SHAHAB. EXAMINATION GENERAL EXAMINATION: PSYCHTHIN, PALE, ALERT , ORIENTED X 3 , ANXIOUS. LUNGS:CLEAR TO AUSCULTATION BILATERALLY, NO WHEEZES, RALES OR RHONCHI. HEART:NO CAROTID BRUITS. , HEART RATE REGULAR, , 1/6 SYSTOLOC MURMUR LEFT OF STERNAL BORDER. . MUSCULOSKELETAL:MUSCLE STRENGTH TESTING 5/5 BILATERAL UPPER AND LOWER EXTREMITIES. HEAD IN HEAD FORWARD POSITION . SL DISCOMFORT WITH LEFT HIP COMPRESSTION. POINT TENDERNESS OVER LEFT FACETS AND SIJ, TENDER OVER LEFT TROCANTER. SLOW TO RISE TO STANDING POSITION. POOR BALANCE. GAIT WIDE BASED, ROCKING.. ASSESSMENTS POST LAMINECTOMY SYNDROME - M96.1 (PRIMARY) LUMBAR RADICULAR PAIN - M54.16 PAIN OF LEFT HIP JOINT - M25.552 TREATMENT POST LAMINECTOMY SYNDROME START OXYCODONE HCL TABLET, 10 MG, 1 TABLET NEEDED, ORALLY, EVERY 6 HRS PRN MDD=4, 30 DAY(S), 120, REFILLS 0 NOTES: WALK EVERY DAY. KEEP MEDS SECURE. CLINICAL NOTES: RISKS AND BENEFITS OF NARCOTIC/OPIOD MEDICATIONS WERE REVIEWED WITH PATIENT - THIS INCLUDES BUT IS NOT LIMITED TO RISK OF DEPENDANCE/DEVELOPMENT OF ADDICTION, MOOD DISTURBANCE AND DEPRESSION, OSTEOPOROSIS, HORMONAL AND LABIDAL CHANGES, RESPIRATORY DEPRESSION AND . PATIENT IS ADVISED NOT TO DRIVE WHILE ON THESE MEDICATIONS, ISTOP REGISTRY REVIEWED AND DEMNOSTRATES COMPLLIANCE.(REF #[id number]). WILL DO UTOX AT NEXT VISIT. PROCEDURE CODES FA211 ESTABILISHED PATIENT [facility] CHARGE DISPOSITION & COMMUNICATION FOLLOW UP CALL WHEN BACK IN AREA (REASON: BACK PAIN) ELECTRONICALLY SIGNED BY JAVIER SOTO ON 09/29/2017 AT 09:58 AM EST DISCLAIMER : THIS IS A VISIT SUMMARY EXTRACTED FROM THE [employer] CHART. IT IS NOT A COPY OF THE [employer] PROGRESS NOTE. SUNIL
== END ==
LOC: M PAIN 13:30
PROVIDERS: ATTEND Nurse Practitioner Family
DX: M96.1 Postlaminectomy syndrome, not elsewhere classified (principal); M54.16 Radiculopathy, lumbar region; M25.552 Pain in left hip; J44.9 Chronic obstructive pulmonary disease, unspecified; I25.10 Atherosclerotic heart disease of native coronary artery without angina pectoris; E55.9 Vitamin D deficiency, unspecified; E53.9 Vitamin B deficiency, unspecified; F17.210 Nicotine dependence, cigarettes, uncomplicated; Z79.02 Long term (current) use of antithrombotics/antiplatelets; Z79.891 Long term (current) use of opiate analgesic; Z79.899 Other long term (current) drug therapy; Z88.5 Allergy status to narcotic agent; Z88.8 Allergy status to other drugs, medicaments and biological substances; Z88.6 Allergy status to analgesic agent

== ENCOUNTER 2021-07-28 11:15 | Emergency (ER) | payer MEDICARE, MEDICAID ==
[2021-07-28 11:15] VITALS: BP 166/90
[~2021-07-28 11:15] MED LIST changes: -ASPI1TAB PO; +ASPI81TA26 PO; +CYAN100049 PO; -VITA10002 PO
[2021-07-28] MEDS ORDERED: CYCLOBENZAPRINE 10MG TABLET PO ONE (13:40)
--- NOTE | 2021-07-28 14:25 | REPVR ---
PROCEDURE INFORMATION: Exam: CT Cervical Spine Without Contrast Exam date and time: 07/28/2021 1:40 PM Age: 71 years old Clinical indication: Neck pain; Additional info: Neck pain/dec rom previous fusion TECHNIQUE: Imaging protocol: Computed tomography images of the cervical spine without contrast. Radiation optimization: All CT scans at this facility use at least one of these dose optimization techniques: automated exposure control; mA and/or kV adjustment per patient size (includes targeted exams where dose is matched to clinical indication); or iterative reconstruction. COMPARISON: LOW DOSE LUNG SCREENING CT 05/16/2017 1:19 PM FINDINGS: Bones/joints: The patient is status post C5-7 fusion with anterior plate and screw fixation. The surgical hardware is in place and intact. There is mild reversal of the normal cervical lordosis. There is minor anterolisthesis of C3 on C4 due to severe facet arthropathy. No acute fracture is identified. Discs/Spinal canal/Neural foramina: Severe degenerative changes of the cervical spine are present. There is no severe spinal canal stenosis. Multilevel neural foraminal narrowing from uncinate spurring and facet arthropathy is noted. Lungs: Mild scarring is present in the lung apices. Vasculature: Atherosclerotic calcifications are present at the carotid bifurcations. Soft tissues: Unremarkable. IMPRESSION: 1. No acute abnormality. 2. Chronic findings as discussed above. Electronically signed by: Cleveland Aguilera On 07/28/2021 14:24:38 PM
[2021-07-28] MEDS ORDERED: BACL10TA2 PO (15:54)
== END 2021-07-28 16:08 | disposition home or self-care (01) ==
LOC: M ED 11:15
DX: M62.838 Other muscle spasm (principal); I10 Essential (primary) hypertension; J44.9 Chronic obstructive pulmonary disease, unspecified; I25.2 Old myocardial infarction; E78.5 Hyperlipidemia, unspecified; Z88.5 Allergy status to narcotic agent; Z88.8 Allergy status to other drugs, medicaments and biological substances; Z79.82 Long term (current) use of aspirin; Z79.01 Long term (current) use of anticoagulants; F17.210 Nicotine dependence, cigarettes, uncomplicated

== ENCOUNTER 2021-07-31 14:03 | Emergency (ER) | payer MEDICAID, MEDICARE ==
[~2021-07-31] VITALS: Ht 190.5 cm; Wt 70.0 kg
[~2021-07-31 14:03] MED LIST changes: +BACL10TA2 PO
[2021-07-31] MEDS ORDERED: diazePAM 5MG TABLET PO ONE (17:25)
[2021-07-31] MEDS ORDERED: methylPREDNISolone 125MG 2ML VIAL IV ONE (17:25)
[2021-07-31] MEDS ORDERED: LIDOCAINE 5% (LIDODERM) PATCH TD ONE (17:25)
[2021-07-31 18:06] LABS: BASO % 0.4 % (0.0-1.0); EOS # 0.8 10^3/uL (0.0-0.5); EOS % 11.2 % (0.0-3.0); HEMATOCRIT 44.6 % (42.0-52.0); HEMOGLOBIN 14.3 g/dl (13.5-17.5); LYMPH # 2.1 10^3/uL (1.5-5.0); LYMPH % 30.7 % (24.0-44.0); MEAN CORPUSCULAR HEMOGLOBIN 32.3 pg (27.0-33.0); MEAN CORPUSCULAR HGB CONC 32.1 g/dl (32.0-36.5); MEAN CORPUSCULAR VOLUME 100.7 fl (80.0-96.0); MONO # 0.7 10^3/uL (0.0-0.8); MONO % 9.4 % (2.0-8.0); NEUTROPHILS # 3.3 10^3/uL (1.5-8.5); PLATELET COUNT, AUTOMATED 181 10^3/uL (150-450); RED BLOOD COUNT 4.43 10^6/uL (4.30-6.10); WHITE BLOOD COUNT 6.9 10^3/uL (4.0-10.0)
[2021-07-31 18:32] LABS: ERYTHROCYTE SEDIMENTATION RATE 35 mm/hr (0-20)
[2021-07-31] MEDS ORDERED: **NOTE PATIENT COMMENT** MISC XX SCH (21:00)
[2021-07-31] MEDS ORDERED: PRED20TA PO (21:10)
[2021-07-31 21:22] VITALS: BP 136/88
== END 2021-07-31 21:31 | disposition home or self-care (01) ==
LOC: M ED 14:03
DX: M62.838 Other muscle spasm (principal); J44.9 Chronic obstructive pulmonary disease, unspecified; E78.5 Hyperlipidemia, unspecified; I25.2 Old myocardial infarction; G89.29 Other chronic pain; M54.2 Cervicalgia; Z79.01 Long term (current) use of anticoagulants; Z79.899 Other long term (current) drug therapy; Z79.82 Long term (current) use of aspirin; Z88.5 Allergy status to narcotic agent; Z88.8 Allergy status to other drugs, medicaments and biological substances; F17.210 Nicotine dependence, cigarettes, uncomplicated
CPT/HCPCS: 80047; 85025; 85652; 86140; 96374; 99284; J2930

== ENCOUNTER → 2021-09-14 | Outpatient (REF) | payer MEDICARE, MEDICAID ==
[~2021-09-14] MED LIST changes: +PRED20TA PO
[2021-09-14 18:15] LABS: C REACTIVE PROTEIN QUANTITATIV < 0.30 MG/DL (0.00-0.30); CHOLESTEROL LEVEL 198 MG/DL (<200); CHOLESTEROL RISK RATIO 2.828 (<5); FOLATE 9.1 NG/ML; FREE T4 1.01 NG/DL (0.76-1.46); HDL CHOLESTEROL 70 MG/DL (>40); LDL CHOLESTEROL 112 MG/DL (<100); NON-HDL-C 128 MG/DL; TOTAL 25(OH) VITAMIN D 25.4 NG/ML (30.0-100.0); TRIGLYCERIDES LEVEL 81 MG/DL (<150); VITAMIN B12 LEVEL 265 PG/ML
== END ==
LOC: M SFHCADAM 14:50
PROVIDERS: ATTEND Physician Assistant
DX: I25.10 Atherosclerotic heart disease of native coronary artery without angina pectoris (principal); M54.2 Cervicalgia; M54.50 Low back pain, unspecified; E55.9 Vitamin D deficiency, unspecified; E53.8 Deficiency of other specified B group vitamins; Z12.5 Encounter for screening for malignant neoplasm of prostate; Z87.81 Personal history of (healed) traumatic fracture; Z79.899 Other long term (current) drug therapy
CPT/HCPCS: 80061; 80307; 81374; 82306; 82607; 82746; 84439; 84443; 85652; 86038; 86140; 86431; G0103